=== PATIENT | male | born 1940 | race Caucasian/White ===

== ENCOUNTER 2017-10-09 08:00 | Outpatient (CLI) | payer MEDICARE, OTHER ==
[2017-10-09 12:04] LABS: BASOPHILS % (AUTO) 1.1 %; EOSINOPHILS # (AUTO) 0.1 10^3/uL (0.0-0.7); EOSINOPHILS % (AUTO) 2.3 %; HGB - HEMOGLOBIN 14.3 g/dL (14.0-18.0); LYMPHOCYTES % (AUTO) 23.5 %; MEAN CORPUSCULAR HEMOGLOBIN 32.6 pg (27.0-31.0); MEAN CORPUSCULAR HGB CONC 34.1 g/dL (32.0-36.0); MEAN CORPUSCULAR VOLUME 95.5 fL (80.0-94.0); MEAN PLATELET VOLUME 8.7 fL (7.4-11.4); MONOCYTES # (AUTO) 0.4 10^3/uL (0.0-1.0); MONOCYTES % (AUTO) 9.4 %; NEUTROPHILS # (AUTO) 2.8 10^3/uL (1.5-6.6); NEUTROPHILS % (AUTO) 63.7 %; PLT - PLATELET COUNT 206 10^3/uL (130-450); RED BLOOD COUNT 4.39 10^6/uL (4.70-6.10); RED CELL DISTRIBUTION WIDTH 14.1 % (12.0-15.0); WHITE BLOOD COUNT 4.4 x10^3/uL (4.8-10.8)
[2017-10-09 12:44] LABS: ALBUMIN 4.2 g/dL (3.2-5.5); ALBUMIN/GLOBULIN RATIO 1.8 (1.0-2.2); BILIRUBIN,TOTAL 0.7 mg/dL (0.2-1.0); CALCIUM 9.2 mg/dL (8.5-10.3); CREATININE 0.8 mg/dL (0.6-1.2); TOTAL PROTEIN 6.6 g/dL (6.7-8.2)
[2017-10-09 13:10] LABS: PSA FREE 0.28 ng/mL (0.16-2.81); PSA TOTAL 1.52 ng/mL (0.000-2.000)
== END 2017-10-09 08:01 | disposition home or self-care (01) ==
LOC: LAB.WCP 08:00
PROVIDERS: ATTEND Family Medicine
DX: Z00.00 Encounter for general adult medical examination without abnormal findings (principal); K21.9 Gastro-esophageal reflux disease without esophagitis; E78.5 Hyperlipidemia, unspecified; K57.90 Diverticulosis of intestine, part unspecified, without perforation or abscess without bleeding; R97.20 Elevated prostate specific antigen [PSA]
CPT/HCPCS: 36415; 80053; 84154; 85025

== ENCOUNTER 2019-03-06 11:20 | Day surgery (SDC) | payer MEDICARE, OTHER ==
[2019-03-06] MEDS ORDERED: MIDAZOLAM 2 MG/2 ML VIAL IVP ONE (11:21)
[2019-03-06] MEDS ORDERED: fentaNYL 100 MCG/2 ML VIAL IVP ONE (11:21)
[2019-03-06] MEDS ORDERED: PROPOFOL 200 MG/20 ML VIAL IVP ONE (11:21)
[2019-03-06] MEDS ORDERED: LACTATED RINGERS 1,000 ML IV ONE ×2 (11:31→16:30)
[2019-03-06] MEDS ORDERED: CEFAZOLIN SODIUM IN 0.9 % NACL 2 GM/100 ML BAG IV ONE (12:03)
[2019-03-06] MEDS ORDERED: oxyCODONE 5 MG TABLET PO PRN (12:40)
[2019-03-06] MEDS ORDERED: IBUPROFEN 600 MG TABLET PO PRN (12:40)
[2019-03-06] MEDS ORDERED: ONDANSETRON 4 MG/2 ML VIAL IVP PRN (12:40)
[2019-03-06] MEDS ORDERED: ACETAMINOPHEN 325 MG TABLET PO PRN (12:40)
[2019-03-06] MEDS ORDERED: ceFAZolin 1 GM VIAL ONE (14:37)
[2019-03-06] MEDS ORDERED: BUPIVACAINE 0.5% PF 30 ML VIAL ONE (14:37)
[2019-03-06] MEDS ORDERED: LIDOCAINE 1%-EPI 1:100000 20 ML MDV ONE (14:37)
--- NOTE | 2019-03-06 14:37 | ANESTHESIA ---
Pre-Anesthesia VS, & Labs - Diagnosis L inguinal hernia - Procedure L inguinal hernia repair Vital Signs: Temp Pulse Resp BP Pulse Ox 36.5 C 76 18 157/87 H 98 03/06/19 11:36 03/06/19 11:36 03/06/19 11:36 03/06/19 11:36 03/06/19 11:36 Height 5 ft 7 in Weight (kg) 67.4 kg - NPO >8 hours Home Medications and Allergies Home Medications: Ambulatory Orders Calcium Carbonate [Tums (Calcium Carbonate 500mg)] 2 tab PO QPM 02/24/19 Melatonin 3 mg PO QPM 02/24/19 Psyllium [Metamucil] 1 tsp PO BID 02/24/19 Red Yeast Rice 600 mg PO DAILY 02/24/19 diphenhydrAMINE [Benadryl] 25 mg PO HS 02/24/19 [place]-3/Dha/Epa/Fish Oil [Fish Oil 1,000 mg Softgel] 03/06/19 Active Medications Acetaminophen (Tylenol) 650 mg PO Q6H PRN PRN Reason: Pain or Fever > 38C (100.4F) Ibuprofen (Motrin) 600 mg PO Q6HR PRN PRN Reason: PAIN Ondansetron HCl (Zofran Inj) 4 mg IVP Q6HR PRN PRN Reason: Nausea / Vomiting Oxycodone HCl (Roxicodone) 5 mg PO Q4HR PRN PRN Reason: PAIN Cholecalciferol [Vitamin D3] 5,000 unit PO DAILY 11/02/15 Omeprazole [PriLOSEC] 20 mg PO DAILY 11/02/15 Ubidecarenone [Co Q-10] 1 tab PO DAILY 11/02/15 Vitamin B Complex Vit C No.4 [Super B Complex] 150 mg PO DAILY 11/02/15 Calcium Carbonate [Tums (Calcium Carbonate 500mg)] 2 tab PO QPM 02/24/19 Melatonin 3 mg PO QPM 02/24/19 Psyllium [Metamucil] 1 tsp PO BID 02/24/19 Red Yeast Rice 600 mg PO DAILY 02/24/19 diphenhydrAMINE [Benadryl] 25 mg PO HS 02/24/19 [place]-3/Dha/Epa/Fish Oil [Fish Oil 1,000 mg Softgel] 03/06/19 Allergies/Adverse Reactions: Allergies Allergy/AdvReac Type Severity Reaction Status Date / Time No Known Drug Allergies Allergy Verified 11/02/15 13:50 Anes History & Medical History - Anesthetic History Anesthesia Complications: reports: No previous complications Family history of Anesthesia Complications: Denies Family history of Malignant Hyperthermia: Denies - Medical History Cardiovascular: reports: High cholesterol Pulmonary: reports: None Gastrointestinal: reports: GERD, Hiatal hernia, Colon polyps Urinary: reports: Benign prostate hypertrophy Musculoskeletal: reports: Osteoarthritis Endocrine/Autoimmune: reports: None Skin: reports: None - Surgical History General: Colonoscopy Eyes Ears Nose Throat (EENT): Cataracts, Tonsil/Adenoidectomy Orthopedic: Arthroscopic surgery, Carpal Tunnel surgery, Other Exam General: Alert, Oriented x3, Cooperative Dental: Partials Upper, Partials Lower Mouth Openin Fingerbreadth Neck Mobility: Normal Mallampati classification: II Thyromental Distance: 4-6 cm Respiratory: Lungs clear, Normal breath sounds Cardiovascular: Regular rate Neurological: Normal speech Mental/Cognitive Status: Alert/Oriented X3, Normal for patient Cognitive Status: Within normal limits Plan Anesthesia Type: MAC Consent for Procedure(s) Verified and Reviewed: Yes Code Status: Attempt Resuscitation ASA classification: 2-Mild systemic disease Is this case an emergency?: No
[2019-03-06] MEDS ORDERED: BUPIVACAINE 0.5% PF 30 ML VIAL INFIL ONE ×2 (15:34)
[2019-03-06] MEDS ORDERED: LIDOCAINE MPF 1%-EPI 1:200000 30 ML VIAL SUBQ ONE ×2 (15:34)
[2019-03-06] MEDS ORDERED: ceFAZolin 1 GM VIAL IR ONE (15:34)
[2019-03-06] MEDS ORDERED: oxyCODONE 5 MG TABLET ONE (16:34)
[2019-03-06 17:05] VITALS: BP 133/68
--- NOTE | 2019-03-06 19:54 | OPERATIVE REPORT ---
DATE OF SERVICE: 03/06/2019 Physician: Trev Layton MD PREOPERATIVE DIAGNOSES 1. Symptomatic left inguinal hernia, indirect. 2. Cord lipoma. POSTOPERATIVE DIAGNOSES 1. Symptomatic left inguinal hernia, indirect. 2. Cord lipoma. PROCEDURE PERFORMED 1. Open repair of left inguinal hernia with polypropylene mesh. 2. Excision of cord lipoma. ANESTHESIA: Local plus monitored anesthesia care by David Mace CRNA. SURGEON: Trev Layton MD ESTIMATED BLOOD LOSS: 2 mL COMPLICATIONS: None. FINDINGS: A [id number] size indirect omentum containing indirect left inguinal hernia was identified. There was an associated 5 cm cord lipoma. There was no evidence of direct or femoral hernia. A Bard mesh, medium weight, precut, expanded polypropylene patch was used for the reconstruction. INDICATIONS: Patient is an 79-year-old gentleman with a recent onset of a painful left groin bulge. Examination revealed a reducible left inguinal hernia. He was advised to undergo repair. TECHNIQUE: After informed consent, the patient was taken to the operating room where he was sedated and monitored. Preoperative preparation included administration of 2 grams cefazolin intravenously within an hour of the incision and application of sequential calf compression boots. His left groin had been clipped in the ASU and was prepared with iodoform solution, following which a left groin block was instituted using a 50:50 combination of 1% lidocaine with epinephrine and 0.5% Marcaine plain; a total of 22 mL of mixture was used. The left groin was re-prepared with ChloraPrep solution and draped in the usual sterile fashion. A transverse incision was made in the skin lines of the left groin beginning above the pubic tubercle and extending 5 cm in length. Hemostasis achieved with electrocautery and 2-0 Vicryl ties. Incision was carried down through subcutaneous tissues until the external oblique aponeurosis was identified and incised along the lines of its fibers in such a manner as to open the external ring and expose the internal ring. The spermatic cord was mobilized and encircled with a Rigoberto drain. The ilioinguinal nerve was identified and divided to avoid entrapment and neuralgia. The cord was dissected, isolating the indirect sac from the surrounding cord structures to the level of the internal ring. It was opened. Adhesions between the omentum and the wall of the hernia sac were lysed, allowing the omentum to be fully reduced into the peritoneal cavity. A finger was then inserted into the peritoneal cavity and search for direct and femoral hernias made and none was identified. The hernia sac was then twisted and doubly highly ligated with 3-0 silk suture ligatures. Excess hernia sac was amputated and discarded. The cord lipoma was similarly dissected free from surrounding cord structures to level of the internal ring, where it was ligated with 2-0 Vicryl, amputated and discarded. After hemostasis was assured, the wound was irrigated with antibiotic solution containing 1 gram cefazolin per liter. A Bard, medium weight, precut, slotted, inguinal hernia patch consisting of expanded polypropylene was soaked in the antibiotic solution and then placed over the inguinal floor and secured in place circumferentially with 3-0 Prolene sutures, securing it to the shelving edge of Poupart's ligament inferiorly and to the internal oblique aponeurosis superolaterally and to the lateral border of the rectus sheath medially. Care was taken to avoid excessive tightening of the patch around the cord at the level of the internal ring. After the patch had been circumferentially implanted and secured, the wound was again irrigated with antibiotic solution, following which wound closure was accomplished in layers, including continuous 2-0 Vicryl to reapproximate the external oblique aponeurosis overlying the cord, followed by 3-0 Vicryl for Rafa's fascia and 4-0 Monocryl subcuticular skin closure, followed by Dermabond. The procedure was then terminated, and the patient was transferred out of the operating room in satisfactory condition. Sponge and needle counts were correct x2. No drains were used. cc: Adrien Luz DO TD: 03/06/2019 16:23 MTDJess
== END 2019-03-06 11:21 | disposition home or self-care (01) ==
LOC: SDS 11:20
PROVIDERS: ATTEND Internal Medicine Gastroenterology
PROC: 0VBG0ZZ Excision of Left Spermatic Cord, Open Approach (ICD-10-PCS; 2019-03-06)
PROC: 0YU60JZ Supplement Left Inguinal Region with Synthetic Substitute, Open Approach (ICD-10-PCS; principal; 2019-03-06 14:00)
DX: K40.90 Unilateral inguinal hernia, without obstruction or gangrene, not specified as recurrent (principal); D17.6 Benign lipomatous neoplasm of spermatic cord; Z87.891 Personal history of nicotine dependence; N40.0 Benign prostatic hyperplasia without lower urinary tract symptoms; K21.9 Gastro-esophageal reflux disease without esophagitis
CPT/HCPCS: 49505; 55520; A9270; C1781; J0690; J7120

== ENCOUNTER 2019-12-28 14:03 | Outpatient (CLI) | payer MEDICARE, OTHER ==
--- NOTE | 2019-12-28 15:45 | XRAY Report ---
PROCEDURE: Shoulder 2 View RT INDICATIONS: SHOULDER PAIN, RIGHT TECHNIQUE: 2 views of the shoulder were acquired. COMPARISON: None. FINDINGS: Bones: No fractures or dislocations. No suspicious bony lesions. Visualized ribs appear intact. M oderate AC joint osteoarthritis. Soft tissues: No suspicious soft tissue calcifications. IMPRESSION: No trauma found, moderate AC joint osteoarthritis. Reviewed by: Sterling Henry MD on 12/28/2019 3:43 PM PST Approved by: Sterling Henry MD on 12/28/2019 3:43 PM [facility] Station ID: [id number]
== END 2019-12-28 14:04 | disposition home or self-care (01) ==
LOC: DI 14:03
PROVIDERS: ATTEND Family Medicine
DX: M19.011 Primary osteoarthritis, right shoulder (principal)

== ENCOUNTER 2020-12-27 12:33 | Outpatient (CLI) | payer MEDICARE, OTHER ==
[2020-12-27 18:19] LABS: BASOPHILS % (AUTO) 0.5 %; EOSINOPHILS # (AUTO) 0.1 10^3/uL (0.0-0.7); EOSINOPHILS % (AUTO) 1.4 %; HCT - HEMATOCRIT 45.5 % (42.0-52.0); HGB - HEMOGLOBIN 14.7 g/dL (14.0-18.0); LYMPHOCYTES # (AUTO) 1.1 10^3/uL (1.5-3.5); MEAN CORPUSCULAR HEMOGLOBIN 31.4 pg (27.0-31.0); MEAN CORPUSCULAR HGB CONC 32.3 g/dL (32.0-36.0); MEAN CORPUSCULAR VOLUME 97.2 fL (80.0-94.0); MEAN PLATELET VOLUME 10.6 fL (7.4-11.4); MONOCYTES # (AUTO) 0.7 10^3/uL (0.0-1.0); MONOCYTES % (AUTO) 8.6 %; NEUTROPHILS # (AUTO) 6.1 10^3/uL (1.5-6.6); NEUTROPHILS % (AUTO) 75.1 %; PLT - PLATELET COUNT 242 10^3/uL (130-450); RED BLOOD COUNT 4.68 10^6/uL (4.70-6.10); RED CELL DISTRIBUTION WIDTH 13.3 % (12.0-15.0); WHITE BLOOD COUNT 8.1 x10^3/uL (4.8-10.8)
[2020-12-27 18:38] LABS: ALBUMIN 4.6 g/dL (3.2-5.5); ALBUMIN/GLOBULIN RATIO 1.8 (1.0-2.2); BILIRUBIN,TOTAL 0.8 mg/dL (0.2-1.0); CALCIUM 9.7 mg/dL (8.5-10.3); CREATININE 0.8 mg/dL (0.6-1.2); TOTAL PROTEIN 7.1 g/dL (6.7-8.2)
== END 2020-12-27 12:34 | disposition home or self-care (01) ==
LOC: LAB.N 12:33
PROVIDERS: ATTEND Family Medicine
DX: Z79.899 Other long term (current) drug therapy (principal)
CPT/HCPCS: 36415; 80053; 85025

== ENCOUNTER 2020-12-27 12:39 | Outpatient (CLI) | payer MEDICARE, OTHER ==
--- NOTE | 2020-12-29 02:21 | XRAY Report ---
PROCEDURE: Foot 3 View BILAT INDICATIONS: METATARSALGIA, BILATERAL FEET TECHNIQUE: 3 views of the foot were acquired. COMPARISON: None FINDINGS: Bones: No fractures or dislocations. No suspicious bony lesions. Bilateral mild to moderate IP deg enerative narrowing. No erosions are identified. Calcaneal spurs are present bilaterally. There is bi lateral subluxation of the DIP joints. Soft tissues: No tibiotalar joint effusion. Achilles tendon appears normal. IMPRESSION: Degenerative changes as above. No visualized acute fracture or dislocation. However, occult injury ca nnot be excluded. Recommend short interval imaging follow-up in 7-10 days as clinically indicated for additional evaluation. Reviewed by: Teagan Garcia MD on 12/29/2020 1:24 AM PDT Approved by: Teagan Garcia MD on 12/29/2020 1:24 AM PDT Station ID: [id number]
== END 2020-12-27 12:40 | disposition home or self-care (01) ==
LOC: DI.N 12:39
PROVIDERS: ATTEND Family Medicine
DX: M19.072 Primary osteoarthritis, left ankle and foot (principal); M19.071 Primary osteoarthritis, right ankle and foot; M77.32 Calcaneal spur, left foot; M77.31 Calcaneal spur, right foot; Z79.899 Other long term (current) drug therapy
CPT/HCPCS: 36415; 80053; 85025

== ENCOUNTER 2021-11-07 09:44 | Outpatient (CLI) | payer MEDICARE, OTHER ==
[2021-11-07 12:51] LABS: BASOPHILS % (AUTO) 0.6 %; EOSINOPHILS # (AUTO) 0.1 10^3/uL (0.0-0.7); EOSINOPHILS % (AUTO) 2.4 %; HCT - HEMATOCRIT 44.3 % (42.0-52.0); LYMPHOCYTES % (AUTO) 21.2 %; MEAN CORPUSCULAR HEMOGLOBIN 31.8 pg (27.0-31.0); MEAN CORPUSCULAR HGB CONC 33.9 g/dL (32.0-36.0); MEAN CORPUSCULAR VOLUME 93.9 fL (80.0-94.0); MEAN PLATELET VOLUME 10.7 fL (7.4-11.4); MONOCYTES # (AUTO) 0.4 10^3/uL (0.0-1.0); MONOCYTES % (AUTO) 8.5 %; NEUTROPHILS # (AUTO) 3.1 10^3/uL (1.5-6.6); NEUTROPHILS % (AUTO) 66.9 %; PLT - PLATELET COUNT 240 10^3/uL (130-450); RED BLOOD COUNT 4.72 10^6/uL (4.70-6.10); RED CELL DISTRIBUTION WIDTH 13.4 % (12.0-15.0); WHITE BLOOD COUNT 4.7 x10^3/uL (4.8-10.8)
[2021-11-07 13:02] LABS: THYROID STIMULATING HORMONE 5.1 uIU/mL (0.34-5.60)
[2021-11-07 13:06] LABS: ALBUMIN 4.5 g/dL (3.2-5.5); ALKALINE PHOSPHATASE 67 IU/L (42-121); ALT ALANINE AMINOTRANSFERASE 18 IU/L (10-60); AST ASPARTATE AMINOTRANSFERASE 21 IU/L (10-42); BILIRUBIN,TOTAL 1.2 mg/dL (0.2-1.0); BUN - BLOOD UREA NITROGEN 11 mg/dL (6-20); CALCIUM 9.7 mg/dL (8.5-10.3); CARBON DIOXIDE - CO2 28 mmol/L (21-32); CHLORIDE 103 mmol/L (101-111); CHOL/HDL RATIO 3.6 (<5.0); CHOLESTEROL 186 mg/dL; CREATININE 0.8 mg/dL (0.6-1.2); GFR - MDRD 93 (>89); GLUCOSE 99 mg/dL (70-100); HDL CHOLESTEROL 52 mg/dL; LDL CHOLESTEROL,CALCULATED 119 mg/dL; LDL/HDL RATIO 2.3 (<3.6); POTASSIUM 3.9 mmol/L (3.5-5.0); SODIUM 140 mmol/L (135-145); TOTAL PROTEIN 6.7 g/dL (6.7-8.2); TRIGLYCERIDES 77 mg/dL; VLDL CHOLESTEROL 15 mg/dL
== END 2021-11-07 09:45 | disposition home or self-care (01) ==
LOC: LAB.N 09:44
PROVIDERS: ATTEND Internal Medicine
DX: E78.5 Hyperlipidemia, unspecified (principal); Z79.899 Other long term (current) drug therapy
CPT/HCPCS: 36415; 80053; 80061; 83721; 84443; 85025

== ENCOUNTER 2022-06-14 08:00 | Outpatient (CLI) | payer MEDICARE, OTHER | END 2022-06-14 23:59 | disposition home or self-care (01) | LOC: LAB.R 08:00 | PROVIDERS: ATTEND Family Medicine | DX: L72.3 Sebaceous cyst (principal) | CPT/HCPCS: 87070; 87077; 87181; 87205 ==

== ENCOUNTER 2022-12-27 09:10 | Day surgery (SDC) | payer MEDICARE ==
[2022-12-27] MEDS ORDERED: LACTATED RINGERS 1,000 ML IV ONE ×2 (09:29→10:55)
--- NOTE | 2022-12-27 09:42 | ANESTHESIA ---
Pre-Anesthesia VS, & Labs - Diagnosis Screening exam - Procedure colonoscopy Vital Signs: Temp Pulse Resp BP Pulse Ox O2 Flow Rate 36.3 C L 58 L 14 149/94 H 95 12/27/22 09:30 12/27/22 09:30 12/27/22 09:30 12/27/22 09:30 12/27/22 09:30 Height: 5 ft 6 in Weight (kg): 64.5 kg Body Mass Index: 22.9 BMI Classification: Normal - NPO >8 hours Home Medications and Allergies Cholecalciferol [Vitamin D3] 5,000 unit PO DAILY 11/02/15 Omeprazole [PriLOSEC] 20 mg PO DAILY 11/02/15 Ubidecarenone [Co Q-10] 1 tab PO DAILY 11/02/15 Vitamin B Complex Vit C No.4 [Super B Complex] 150 mg PO DAILY 11/02/15 Calcium Carbonate [Tums (Calcium Carbonate 500mg)] 2 tab PO QPM 02/24/19 Melatonin 3 mg PO QPM 02/24/19 Psyllium [Metamucil] 1 tsp PO BID 02/24/19 Red Yeast Rice 600 mg PO DAILY 02/24/19 diphenhydrAMINE [Benadryl] 25 mg PO HS 02/24/19 [place]-3/Dha/Epa/Fish Oil [Fish Oil 1,000 mg Softgel] 1 cap PO DAILY 03/06/19 Allergies/Adverse Reactions: Allergies Allergy/AdvReac Type Severity Reaction Status Date / Time No Known Drug Allergies Allergy Verified 11/02/15 13:50 Anes History & Medical History - Anesthetic History Anesthesia Complications: reports: No previous complications - Medical History Cardiovascular: reports: None Pulmonary: reports: None Gastrointestinal: reports: GERD, Hiatal hernia, Colon polyps Urinary: reports: Benign prostate hypertrophy Neuro: reports: None Musculoskeletal: reports: Osteoarthritis Endocrine/Autoimmune: reports: None Skin: reports: None Smoking Status: Never smoker Psychosocial: reports: Alcohol (one drink every night) History of Cancer?: No - Surgical History General: reports: Colonoscopy Eyes Ears Nose Throat (EENT): reports: Cataracts, Tonsil/Adenoidectomy Orthopedic: reports: Arthroscopic surgery, Carpal Tunnel surgery, Other Exam General: Alert, Oriented x3, Cooperative, No acute distress Dental: Partials Upper, Partials Lower Mouth Openin Fingerbreadth Neck Mobility: Normal Mallampati classification: II Thyromental Distance: 4-6 cm Mental/Cognitive Status: Alert/Oriented X3, Normal for patient Plan Anesthesia Type: General, Total IV Consent for Procedure(s) Verified and Reviewed: Yes Code Status: Attempt Resuscitation ASA classification: 2-Mild systemic disease Is this case an emergency?: No
--- NOTE | 2022-12-27 10:02 | HISTORY & PHYSICAL EXAMINATION ---
Chief Complaint - Chief Complaint Chief Complaint: here for colonoscopy History of Present Illness - History Obtained From Records Reviewed: yes History obtained from: pt Exam Limitations: none - History of Present Illness HPI Comment/Other: history colon polyps 7 years ago and 5 years prior to that. hx distant diverticulitis. no recent gi symptoms. History - Past Medical History Cardiovascular: reports: None Respiratory: reports: None Neuro: reports: None Endocrine/Autoimmune: reports: None GI: reports: GERD, Hiatal hernia, Colon polyps : reports: Benign prostate hypertrophy HEENT: reports: Chronic hearing loss Psych: reports: None Musculoskeletal: reports: Osteoarthritis Derm: reports: None MRSA Hx?: No - Past Surgical History General: reports: Colonoscopy Ortho: reports: Arthroscopic surgery, Carpal Tunnel surgery, Other HEENT: reports: Cataracts, Tonsil/Adenoidectomy Meds/Allgy - Home Medications Home Medications: Ambulatory Orders Medication Instructions Recorded Confirmed Cholecalciferol [Vitamin D3] 5,000 unit PO DAILY 11/02/15 12/26/22 Omeprazole [PriLOSEC] 20 mg PO DAILY 11/02/15 12/26/22 Ubidecarenone [Co Q-10] 1 tab PO DAILY 11/02/15 12/26/22 Vitamin B Complex Vit C No.4 150 mg PO DAILY 11/02/15 12/26/22 [Super B Complex] Calcium Carbonate [Tums (Calcium 2 tab PO QPM 02/24/19 12/26/22 Carbonate 500mg)] Melatonin 3 mg PO QPM 02/24/19 12/26/22 Psyllium [Metamucil] 1 tsp PO BID 02/24/19 12/26/22 Red Yeast Rice 600 mg PO DAILY 02/24/19 12/26/22 diphenhydrAMINE [Benadryl] 25 mg PO HS 02/24/19 12/26/22 [place]-3/Dha/Epa/Fish Oil [Fish Oil 1 cap PO DAILY 03/06/19 12/26/22 1,000 mg Softgel] - Allergies Allergies/Adverse Reactions: Allergies Allergy/AdvReac Type Severity Reaction Status Date / Time No Known Drug Allergies Allergy Verified 12/27/22 09:46 Review of Systems - Other Findings Other Findings: 10 pt ros as above otherwise unremarkable Exam - Vital Signs Vital Signs: Vital Signs x48h Temp Pulse Resp BP Pulse Ox 12/27/22 09:30 36.3 C L 58 L 14 149/94 H 95 - Physical Exam General Appearance: positive: No acute distress, Alert Eyes Bilateral: positive: PERRL, EOMI ENT: positive: No signs of dehydration Neck: positive: No JVD, Trachea midline Respiratory: positive: No respiratory distress Cardiovascular: positive: Regular rate & rhythm Abdomen: positive: Non-tender Neurologic/Psychiatric: positive: Oriented x3 Conclusion/Plan - Problem List (1) History of adenomatous polyp of colon Conclusion/Plan: plan colonoscopy. parq held and consent obtained
[2022-12-27 11:11] VITALS: O2SAT 96
[2022-12-27 11:30] VITALS: BP 124/72
--- NOTE | 2022-12-27 13:08 | ANESTHESIA POST OP EVALUATION ---
Anesthesia Post Eval - Post Anesthesia Eval Vitals: Last Vital Signs Temp 36.2 C L 12/27/22 11:15 Pulse 70 12/27/22 11:25 Resp 14 12/27/22 11:25 BP 124/72 12/27/22 11:25 Pulse Ox 96 12/27/22 11:25 O2 Flow Rate CV Function Including HR & BP: Stable Pain Control: Satisfactory Nausea & Vomiting: Negative Mental Status: Baseline Respiratory Status: Airway Patent Hydration Status: Satisfactory Anesthesia Complications: None
== END 2022-12-27 09:11 | disposition home or self-care (01) ==
LOC: SDS 09:10
PROVIDERS: ATTEND Surgery
PROC: 0DBL8ZZ Excision of Transverse Colon, Via Natural or Artificial Opening Endoscopic (ICD-10-PCS; 2022-12-27)
PROC: 0DBP8ZZ Excision of Rectum, Via Natural or Artificial Opening Endoscopic (ICD-10-PCS; 2022-12-27)
PROC: 0DBH8ZZ Excision of Cecum, Via Natural or Artificial Opening Endoscopic (ICD-10-PCS; 2022-12-27)
PROC: 0DBK8ZZ Excision of Ascending Colon, Via Natural or Artificial Opening Endoscopic (ICD-10-PCS; principal; 2022-12-27 10:30)
DX: Z12.11 Encounter for screening for malignant neoplasm of colon (principal); D12.3 Benign neoplasm of transverse colon; D12.2 Benign neoplasm of ascending colon; D12.0 Benign neoplasm of cecum; K62.1 Rectal polyp; K57.30 Diverticulosis of large intestine without perforation or abscess without bleeding
CPT/HCPCS: 45380; 45385; J7120

== ENCOUNTER 2023-01-08 09:07 | Outpatient (CLI) | payer MEDICARE ==
[2023-01-08 12:07] LABS: BASOPHILS # (AUTO) 0.1 10^3/uL (0.0-0.1); BASOPHILS % (AUTO) 1.1 %; EOSINOPHILS # (AUTO) 0.2 10^3/uL (0.0-0.7); EOSINOPHILS % (AUTO) 2.8 %; HCT - HEMATOCRIT 46.2 % (42.0-52.0); HGB - HEMOGLOBIN 15.1 g/dL (14.0-18.0); LYMPHOCYTES # (AUTO) 1.1 10^3/uL (1.5-3.5); LYMPHOCYTES % (AUTO) 20.8 %; MEAN CORPUSCULAR HEMOGLOBIN 31.3 pg (27.0-31.0); MEAN CORPUSCULAR HGB CONC 32.7 g/dL (32.0-36.0); MEAN CORPUSCULAR VOLUME 95.7 fL (80.0-94.0); MEAN PLATELET VOLUME 10.2 fL (7.4-11.4); MONOCYTES # (AUTO) 0.5 10^3/uL (0.0-1.0); MONOCYTES % (AUTO) 8.7 %; NEUTROPHILS # (AUTO) 3.5 10^3/uL (1.5-6.6); NEUTROPHILS % (AUTO) 65.8 %; PLT - PLATELET COUNT 236 10^3/uL (130-450); RED BLOOD COUNT 4.83 10^6/uL (4.70-6.10); RED CELL DISTRIBUTION WIDTH 13.4 % (12.0-15.0); WHITE BLOOD COUNT 5.3 x10^3/uL (4.8-10.8)
[2023-01-08 12:34] LABS: THYROID STIMULATING HORMONE 4.44 uIU/mL (0.34-5.60)
[2023-01-08 12:39] LABS: ALBUMIN 4.6 g/dL (3.2-5.5); ALBUMIN/GLOBULIN RATIO 2.3 (1.0-2.2); ALKALINE PHOSPHATASE 61 IU/L (42-121); ALT ALANINE AMINOTRANSFERASE 11 IU/L (10-60); AST ASPARTATE AMINOTRANSFERASE 15 IU/L (10-42); BUN - BLOOD UREA NITROGEN 9 mg/dL (6-20); CALCIUM 9.5 mg/dL (8.5-10.3); CARBON DIOXIDE - CO2 29 mmol/L (21-32); CHLORIDE 101 mmol/L (101-111); CHOLESTEROL 190 mg/dL; CREATININE 0.8 mg/dL (0.6-1.3); GFR - MDRD 92 (>89); GLUCOSE 100 mg/dL (74-104); HDL CHOLESTEROL 47 mg/dL; LDL CHOLESTEROL,CALCULATED 108 mg/dL; LDL/HDL RATIO 2.3 (<3.6); POTASSIUM 3.8 mmol/L (3.5-4.5); SODIUM 138 mmol/L (135-145); TOTAL PROTEIN 6.6 g/dL (6.4-8.9); TRIGLYCERIDES 175 mg/dL (48-352); VLDL CHOLESTEROL 35 mg/dL
[2023-01-08 12:42] LABS: ESTIMATED AVERAGE GLUCOSE 111 mg/dL (70-100); HEMOGLOBIN A1c% 5.5 % (4.27-6.07)
== END 2023-01-08 09:08 | disposition home or self-care (01) ==
LOC: LAB.N 09:07
PROVIDERS: ATTEND Internal Medicine
DX: E78.5 Hyperlipidemia, unspecified (principal); R73.02 Impaired glucose tolerance (oral); R63.4 Abnormal weight loss
CPT/HCPCS: 36415; 80053; 80061; 83036; 83721; 84443; 85025

== ENCOUNTER 2023-03-27 08:00 | Outpatient (CLI) | payer MEDICARE | END 2023-03-27 08:01 | disposition home or self-care (01) | LOC: LAB.N 08:00 | PROVIDERS: ATTEND Family Medicine | DX: U07.1 COVID-19 (principal) ==

== ENCOUNTER 2023-09-21 12:21 | Outpatient (CLI) | payer MEDICARE | END 2023-09-21 23:59 | disposition critical access hospital (66) | LOC: EMS 12:21 | DX: R41.82 Altered mental status, unspecified (principal); R50.9 Fever, unspecified; R53.1 Weakness; R61 Generalized hyperhidrosis | CPT/HCPCS: A0425; A0427 ==

== ENCOUNTER 2023-09-21 12:52 | Emergency (ER) | payer MEDICARE ==
[2023-09-21 13:25] LABS: BASOPHILS % (AUTO) 0.3 %; EOSINOPHILS % (AUTO) 0.1 %; HCT - HEMATOCRIT 43.5 % (42.0-52.0); LYMPHOCYTES # (AUTO) 0.3 10^3/uL (1.5-3.5); LYMPHOCYTES % (AUTO) 3.7 %; MEAN CORPUSCULAR HEMOGLOBIN 30.8 pg (27.0-31.0); MEAN CORPUSCULAR HGB CONC 32.2 g/dL (32.0-36.0); MEAN CORPUSCULAR VOLUME 95.6 fL (80.0-94.0); MEAN PLATELET VOLUME 9.7 fL (7.4-11.4); MONOCYTES # (AUTO) 0.3 10^3/uL (0.0-1.0); NEUTROPHILS # (AUTO) 8.2 10^3/uL (1.5-6.6); NEUTROPHILS % (AUTO) 92.1 %; PLT - PLATELET COUNT 154 10^3/uL (130-450); RED BLOOD COUNT 4.55 10^6/uL (4.70-6.10); RED CELL DISTRIBUTION WIDTH 13.8 % (12.0-15.0); WHITE BLOOD COUNT 8.9 x10^3/uL (4.8-10.8)
[2023-09-21 13:39] LABS: ALBUMIN 4.3 g/dL (3.2-5.5); BILIRUBIN,TOTAL 1.9 mg/dL (0.2-1.0); CALCIUM 8.7 mg/dL (8.5-10.3); CREATININE 0.9 mg/dL (0.6-1.3); MAGNESIUM 1.6 mg/dL (1.7-2.3); POTASSIUM 4.2 mmol/L (3.5-4.5); TOTAL PROTEIN 6.4 g/dL (6.4-8.9)
--- NOTE | 2023-09-21 13:56 | ED Physician Documentation ---
History of Present Illness - Stated complaint Stated Complaint: FEVER,CHILLS - Chief complaint Chief Complaint: General - History obtained from History obtained from: Patient - Additonal information Additional information: Patient is an 83-year-old male presenting to the emergency department with fevers chills symptoms started yesterday afternoon. Patient's notes he was having excessive fatigue but he was working out in the garden earlier today and she did not think anything of it however by the evening he was having persistent tremors and shaking. She notes this occasionally will happen when he has viral illnesses. She notes he has had COVID 2 other times already and he had similar presentations. Patient was brought in by EMS today he was started on 2 L nasal cannula but was saturating around 96 to 98% on arrival on room air in no acute respiratory distress. Patient has been having persistent dry cough with his symptoms that started yesterday as well. He denies any abdominal pain no urinary symptoms. He has past medical history of reflux as well as BPH but otherwise is generally healthy. did not check his temp at home but did report subjective fever. Patient reports nausea, but has not had any vomiting at home. PD PAST MEDICAL HISTORY - Past Medical History Cardiovascular: None Respiratory: None Neuro: None Endocrine/Autoimmune: None GI: GERD, Hiatal hernia, Colon polyps : Benign prostate hypertrophy HEENT: Chronic hearing loss Psych: None Musculoskeletal: Osteoarthritis Derm: None - Past Surgical History Past Surgical History: Yes General: Colonoscopy Ortho: Arthroscopic surgery, Carpal Tunnel surgery, Other HEENT: Cataracts, Tonsil/Adenoidectomy - Present Medications Home Medications: Ambulatory Orders Medication Instructions Recorded Confirmed Cholecalciferol [Vitamin D3] 5,000 unit PO DAILY 11/02/15 09/21/23 Omeprazole [PriLOSEC] 20 mg PO DAILY 11/02/15 09/21/23 Ubidecarenone [Co Q-10] 1 tab PO DAILY 11/02/15 09/21/23 Vitamin B Complex Vit C No.4 150 mg PO DAILY 11/02/15 09/21/23 [Super B Complex] Calcium Carbonate [Tums (Calcium 2 tab PO QPM 02/24/19 09/21/23 Carbonate 500mg)] Melatonin 3 mg PO QPM 02/24/19 09/21/23 Psyllium [Metamucil] 1 tsp PO BID 02/24/19 09/21/23 Red Yeast Rice 600 mg PO DAILY 02/24/19 09/21/23 diphenhydrAMINE [Benadryl] 25 mg PO HS 02/24/19 09/21/23 [place]-3/Dha/Epa/Fish Oil [Fish Oil 1 cap PO DAILY 03/06/19 09/21/23 1,000 mg Softgel] Doxycycline [Vibramycin] 100 mg PO BID 5 Days #10 tablet 09/21/23 Tamsulosin [Flomax] 1 tab PO DAILY 09/21/23 09/21/23 - Allergies Allergies/Adverse Reactions: Allergies Allergy/AdvReac Type Severity Reaction Status Date / Time No Known Drug Allergies Allergy Verified 09/21/23 13:01 - Social History Does the pt smoke?: No Smoking Status: Never smoker PD ED PE NORMAL - Vitals Vital signs reviewed: Yes - General General: Alert and oriented X 3, Other (Patient does appear fatigued on examination history mainly obtained by patient's ) - HEENT HEENT: PERRL, EOMI, Moist mucous membranes (No erythematous posterior pharynx), Other - Neck Neck: No adenopathy, No bruit - Cardiac Cardiac: RRR, No murmur, No gallop, No rub - Respiratory Respiratory: No respiratory distress, Clear bilaterally - Abdomen Abdomen: Normal bowel sounds, Soft, Non tender, Non distended - Male Male : Deferred - Derm Derm: Normal color - Neuro Neuro: Alert and oriented X 3 Results - Vitals Vitals: Vital Signs - 24 hr 09/21/23 09/21/23 09/21/23 12:56 14:49 15:21 Temperature 37.7 C 38.3 C H 38 C H Heart Rate 85 75 Respiratory 16 18 Rate Blood Pressure 164/89 H 125/62 O2 Saturation 94 95 09/21/23 16:00 Temperature Heart Rate 73 Respiratory 16 Rate Blood Pressure 114/67 O2 Saturation 96 Oxygen O2 Source Room air - Labs Labs: Laboratory Tests 09/21/23 09/21/23 09/21/23 13:19 13:19 13:40 WBC 8.9 RBC 4.55 L Hgb 14.0 Hct 43.5 MCV 95.6 H MCH 30.8 MCHC 32.2 RDW 13.8 Plt Count 154 MPV 9.7 Neut # (Auto) 8.2 H Lymph # (Auto) 0.3 L [place] # (Auto) 0.3 Eos # (Auto) 0.0 Baso # (Auto) 0.0 Absolute Nucleated RBC 0.00 Nucleated RBC % 0.0 Sodium 135 Potassium 4.2 Chloride 103 Carbon Dioxide 26 Anion Gap 6.0 BUN 9 Creatinine 0.9 Estimated GFR (MDRD) 80 L Glucose 99 Lactic Acid Calcium 8.7 Magnesium 1.6 L Total Bilirubin 1.9 H AST 19 ALT 18 Alkaline Phosphatase 61 Total Protein 6.4 Albumin 4.3 Globulin 2.1 Albumin/Globulin Ratio 2.0 Lipase 44 Urine Color Urine Clarity Urine pH Ur Specific Hundred Urine Protein Urine Glucose (UA) Urine Ketones Urine Occult Blood Urine Nitrite Urine Bilirubin Urine Urobilinogen Ur Leukocyte Esterase Urine RBC Urine WBC Ur Squamous Epith Cells Urine Bacteria Ur Microscopic Review Urine Culture Comments Nasal Adenovirus (PCR) NOT DETECTED Nasal B. parapertussis DNA (PCR) NOT DETECTED Nasal Coronavir 229E PCR NOT DETECTED Nasal Coronavir HKU1 PCR NOT DETECTED Nasal Coronavir NL63 PCR NOT DETECTED Nasal Coronavir OC43 PCR NOT DETECTED Nasal Enterovir/Rhinovir PCR NOT DETECTED Nasal Influenza B PCR NOT DETECTED Nasal Influenza A PCR NOT DETECTED Nasal Parainfluen 1 PCR NOT DETECTED Nasal Parainfluen 2 PCR NOT DETECTED Nasal Parainfluen 3 PCR NOT DETECTED Nasal Parainfluen 4 PCR NOT DETECTED Nasal RSV (PCR) NOT DETECTED Nasal B.pertussis DNA PCR NOT DETECTED Nasal C.pneumoniae (PCR) NOT DETECTED [place] Human Metapneumo PCR NOT DETECTED Nasal M.pneumoniae (PCR) NOT DETECTED Nasal SARS-CoV-2 (PCR) NOT DETECTED 09/21/23 09/21/23 13:46 14:01 WBC RBC Hgb Hct MCV MCH MCHC RDW Plt Count MPV Neut # (Auto) Lymph # (Auto) [place] # (Auto) Eos # (Auto) Baso # (Auto) Absolute Nucleated RBC Nucleated RBC % Sodium Potassium Chloride Carbon Dioxide Anion Gap BUN Creatinine Estimated GFR (MDRD) Glucose Lactic Acid 1.0 Calcium Magnesium Total Bilirubin AST ALT Alkaline Phosphatase Total Protein Albumin Globulin Albumin/Globulin Ratio Lipase Urine Color YELLOW Urine Clarity CLEAR Urine pH 7.0 Ur Specific Hundred 1.020 Urine Protein 30 H Urine Glucose (UA) NEGATIVE Urine Ketones NEGATIVE Urine Occult Blood NEGATIVE Urine Nitrite NEGATIVE Urine Bilirubin NEGATIVE Urine Urobilinogen 2 H Ur Leukocyte Esterase NEGATIVE Urine RBC None Seen Urine WBC 0-3 Ur Squamous Epith Cells RARE Squamous Urine Bacteria None Seen Ur Microscopic Review INDICATED Urine Culture Comments NOT INDICATED Nasal Adenovirus (PCR) Nasal B. parapertussis DNA (PCR) Nasal Coronavir 229E PCR Nasal Coronavir HKU1 PCR Nasal Coronavir NL63 PCR Nasal Coronavir OC43 PCR Nasal Enterovir/Rhinovir PCR Nasal Influenza B PCR Nasal Influenza A PCR Nasal Parainfluen 1 PCR Nasal Parainfluen 2 PCR Nasal Parainfluen 3 PCR Nasal Parainfluen 4 PCR Nasal RSV (PCR) Nasal B.pertussis DNA PCR Nasal C.pneumoniae (PCR) [place] Human Metapneumo PCR Nasal M.pneumoniae (PCR) Nasal SARS-CoV-2 (PCR) - Rads (name of study) Chest X-ray Relevant Findings:: EMP independent interpretation of test (LEft lower lobe pneumonia) PD Medical Decision Making - ED course Complexity details: reviewed old records, reviewed results, re-evaluated patient, d/w patient, d/w family ED course: Patient is an 83-year-old male generally healthy presenting to the emergency department with generalized fatigue. Patient symptoms started yesterday afternoon. Patient notes he was feeling rigors chills feverish but no temperature taken at home he had cough that started yesterday after working outside for majority of the day. He denies any urinary symptoms. He reports nausea but no episodes of vomiting. Vitals on arrival are reassuring patient is nontachycardic afebrile on arrival normotensive. Physical exam shows clear breath sounds no abdominal tenderness no rebound or guarding. Labs obtained here in the emergency department showed no significant leukocytosis hemoglobin is stable CMP is unremarkable no significant ANGEL or electrolyte abnormalities. Chest x-ray obtained here in the emergency department shows left lower lobe infiltrate concerning for opacity. Given patient's generalized shaking and subjective fevers most likely secondary to pneumonia. Patient was pulse ox ambulate here no desaturations he maintained around 94%. Patient was given fluids and Tylenol and on reevaluation he appears significantly better he feels safe to go home he denies any persistent fatigue he is eating and drinking well here in the emergency department. Patient given dose of doxycycline here in the emergency department will start patient on oral doxycycline at home as he has no comorbidities.Patient instructed to watch for any worsening shortness of breath persistent fatigue to take Tylenol and ibuprofen at home. While here in the emergency department patient did spike a temperature to 100.4 Fahrenheit patient's temperature down trended after Tylenol and fluids were given. Patient discharged home in the care of his . He was agreeable with plan listed above. Departure - Departure Disposition: 01 Home, Self Care Clinical Impression: Left lower lobe pneumonia, Muscle weakness Condition: Fair Instructions: Pneumonia Dc Prescriptions: Doxycycline [Vibramycin] 100 mg PO BID 5 Days #10 tablet Doxycycline [Vibramycin] 100 mg PO BID 5 Days #10 tablet Comments: Return to the emergency department with any persistent fevers, cough shortness of breath dizziness lightheadedness follow-up with your PCP in outpatient setting within the week and complete antibiotics as prescribed.
[2023-09-21 14:09] LABS: BILIRUBIN,URINE NEGATIVE (NEGATIVE); GLUCOSE, URINE (UA) NEGATIVE (NEGATIVE); KETONES,URINE (UA) NEGATIVE (NEGATIVE); LEUKOCYTE ESTERASE, URINE NEGATIVE (NEGATIVE); NITRITE,URINE NEGATIVE (NEGATIVE); OCCULT BLOOD,URINE NEGATIVE (NEGATIVE); PROTEIN,URINE 30 mg/dL (NEGATIVE); UROBILINOGEN,URINE 2 E.U./dL (NORMAL)
[2023-09-21 14:11] LABS: CLARITY,URINE CLEAR (CLEAR)
[2023-09-21 14:19] LABS: BACTERIA,URINE None Seen /HPF (None Seen); RBC,URINE None Seen /HPF (0-5); SQUAMOUS EPITHELIAL CELL,UR RARE Squamous (<= Few); WBC,URINE 0-3 /HPF (0-3)
--- NOTE | 2023-09-21 14:19 | XRAY Report ---
PROCEDURE: Chest 1V INDICATIONS: sob TECHNIQUE: One view of the chest was acquired. COMPARISON: None FINDINGS: Surgical changes and devices: None. Lungs and pleura: Left basilar atelectasis and or infiltrate. Right lung and pleural space clear Mediastinum: Mediastinal contours appear normal. Heart size is enlarged Bones and chest wall: No suspicious bony lesions. Overlying soft tissues appear unremarkable. IMPRESSION: Left basilar atelectasis or infiltrate Cardiomegaly Reviewed by: Sriram Prieto MD on 09/21/2023 1:17 PM [facility] Approved by: Sriram Prieto MD on 09/21/2023 1:17 PM [facility] Station ID: [id number]
[2023-09-21 14:42] LABS: B. PARAPERTUSSIS- RESP PCR PAN NOT DETECTED; B. PERTUSSIS- RESP PCR PANEL NOT DETECTED; C. PNEUMONIAE- RESP PCR PANEL NOT DETECTED; CORONAVIRUS 229E-RESP PCR NOT DETECTED; CORONAVIRUS HKU1-RESP PCR NOT DETECTED; CORONAVIRUS NL63-RESP PCR NOT DETECTED; CORONAVIRUS OC43-RESP PCR NOT DETECTED; HUMAN METAPNEUMOVIRUS NOT DETECTED; INFLUENZA A- RESP PCR PANEL NOT DETECTED; INFLUENZA B - RESP PCR PANEL NOT DETECTED; M. PNEUMONIAE- RESP PCR PANEL NOT DETECTED; PARAINFLUENZA VIRUS 1 NOT DETECTED; PARAINFLUENZA VIRUS 2 NOT DETECTED; PARAINFLUENZA VIRUS 3 NOT DETECTED; PARAINFLUENZA VIRUS 4 NOT DETECTED; RHINOVIRUS/ENTEROVIRUS NOT DETECTED; RSV- RESP PCR PANEL NOT DETECTED; SARS-CoV-2 -RESP PCR PANEL NOT DETECTED
[2023-09-21] MEDS: SODIUM CHLORIDE 0.9% 1,000 ML IV STA (14:51)
[2023-09-21] MEDS: ACETAMINOPHEN 500 MG TABLET PO STA (14:51)
[2023-09-21] MEDS: DOXYCYCLINE INJ 100 MG in SODIUM CHLORIDE 0.9% MINIBAG 100 ML IV STA (16:45)
[2023-09-21 18:01] VITALS: BP 104/56; O2SAT 97
== END 2023-09-21 18:00 | disposition home or self-care (01) ==
LOC: EDUNIT# → ED 12:52
DX: J18.9 Pneumonia, unspecified organism (principal); M62.81 Muscle weakness (generalized); Z79.899 Other long term (current) drug therapy
CPT/HCPCS: 36415; 71045; 80053; 81001; 83605; 83690; 83735; 85025; 87633; 96365; 99284; A9270; 81003; 87086

== ENCOUNTER 2023-10-21 16:31 | Outpatient (CLI) | payer MEDICARE | END 2023-10-21 16:32 | disposition critical access hospital (66) | LOC: EMS 16:31 | DX: R05.1 Acute cough (principal); R25.1 Tremor, unspecified; R10.84 Generalized abdominal pain; R09.02 Hypoxemia; R00.0 Tachycardia, unspecified; R06.2 Wheezing; R50.9 Fever, unspecified | CPT/HCPCS: A0425; A0427 ==

== ENCOUNTER 2023-10-21 17:03 | Observation (INO) | payer MEDICARE ==
[2023-10-21 17:23] LABS: BASOPHILS % (AUTO) 0.3 %; EOSINOPHILS % (AUTO) 0.1 %; HCT - HEMATOCRIT 41.2 % (42.0-52.0); HGB - HEMOGLOBIN 13.6 g/dL (14.0-18.0); LYMPHOCYTES # (AUTO) 0.4 10^3/uL (1.5-3.5); LYMPHOCYTES % (AUTO) 5.5 %; MEAN CORPUSCULAR HEMOGLOBIN 30.8 pg (27.0-31.0); MEAN CORPUSCULAR VOLUME 93.2 fL (80.0-94.0); MEAN PLATELET VOLUME 9.6 fL (7.4-11.4); MONOCYTES # (AUTO) 0.3 10^3/uL (0.0-1.0); MONOCYTES % (AUTO) 4.2 %; NEUTROPHILS # (AUTO) 6.3 10^3/uL (1.5-6.6); NEUTROPHILS % (AUTO) 89.5 %; PLT - PLATELET COUNT 172 10^3/uL (130-450); RED BLOOD COUNT 4.42 10^6/uL (4.70-6.10); RED CELL DISTRIBUTION WIDTH 13.2 % (12.0-15.0); WHITE BLOOD COUNT 7.1 x10^3/uL (4.8-10.8)
--- NOTE | 2023-10-21 17:23 | ED Physician Documentation ---
PD HPI DYSPNEA - Stated complaint Stated Complaint: UPPER RESP/FEVER - Chief complaint Chief Complaint: Resp - Additional information Additional information: 83-year-old male with recent hospital visit for pneumonia about a month ago was started on doxycycline said that he followed up by urgent care and had resolution of symptoms about a month ago. He has been having flulike symptoms for the last 48 hours as well as some abdominal pain he is taking Tylenol ibuprofen with little to no relief. He also has been experiencing shortness of breath EMS on arrival found patient on room air to be at 87% normally he is not on supplemental oxygen. Fever yesterday was up to 102 F, he has got a cough and generalized malaise. PD PAST MEDICAL HISTORY - Past Medical History Past Medical History: Yes Cardiovascular: None Respiratory: None Neuro: None Endocrine/Autoimmune: None GI: GERD, Hiatal hernia, Colon polyps : Benign prostate hypertrophy HEENT: Chronic hearing loss Psych: None Musculoskeletal: Osteoarthritis Derm: None - Past Surgical History Past Surgical History: Yes General: Colonoscopy Ortho: Arthroscopic surgery, Carpal Tunnel surgery, Other HEENT: Cataracts, Tonsil/Adenoidectomy - Present Medications Home Medications: Ambulatory Orders Medication Instructions Recorded Confirmed Cholecalciferol [Vitamin D3] 5,000 unit PO DAILY 11/02/15 09/21/23 Omeprazole [PriLOSEC] 20 mg PO DAILY 11/02/15 09/21/23 Ubidecarenone [Co Q-10] 1 tab PO DAILY 11/02/15 09/21/23 Vitamin B Complex Vit C No.4 150 mg PO DAILY 11/02/15 09/21/23 [Super B Complex] Calcium Carbonate [Tums (Calcium 2 tab PO QPM 02/24/19 09/21/23 Carbonate 500mg)] Melatonin 3 mg PO QPM 02/24/19 09/21/23 Psyllium [Metamucil] 1 tsp PO BID 02/24/19 09/21/23 Red Yeast Rice 600 mg PO DAILY 02/24/19 09/21/23 diphenhydrAMINE [Benadryl] 25 mg PO HS 02/24/19 09/21/23 [place]-3/Dha/Epa/Fish Oil [Fish Oil 1 cap PO DAILY 03/06/19 09/21/23 1,000 mg Softgel] Doxycycline [Vibramycin] 100 mg PO BID 5 Days #10 tablet 09/21/23 Tamsulosin [Flomax] 1 tab PO DAILY 09/21/23 09/21/23 - Allergies Allergies/Adverse Reactions: Allergies Allergy/AdvReac Type Severity Reaction Status Date / Time No Known Drug Allergies Allergy Verified 10/21/23 17:16 - Social History Does the pt smoke?: No Smoking Status: Never smoker Does the pt drink ETOH?: No Does the pt have substance abuse?: No - Immunizations Immunizations are current?: Yes - POLST Patient has POLST: No PD ED PE NORMAL - Vitals Vital signs reviewed: Yes - General General: Alert and oriented X 3, No acute distress, Well developed/nourished - HEENT HEENT: Atraumatic, PERRL - Neck Neck: Supple, no meningeal sign - Cardiac Cardiac: No murmur, No gallop, Strong equal pulses, Other (tachy) - Respiratory Respiratory: No respiratory distress, Clear bilaterally - Abdomen Abdomen: Normal bowel sounds, Soft, Non distended, Other (generalized abdominal tenderness) - Back Back: No CVA TTP - Derm Derm: Normal color, Warm and dry, No rash - Extremities Extremities: No edema, No calf tenderness / cord - Neuro Neuro: Alert and oriented X 3, 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, No motor deficit, No sensory deficit, Normal speech Results - Vitals Vitals: Vital Signs - 24 hr 10/21/23 10/21/23 10/21/23 17:13 17:41 17:50 Temperature 37.2 C 38.7 C H Heart Rate 115 H 108 H Respiratory 20 20 Rate Blood Pressure 132/78 H 143/72 H O2 Saturation 94 92 If not protocol : Oxygen Flow, liters/minute 10/21/23 10/21/23 10/21/23 19:00 19:03 19:29 Temperature 40.9 C H 40.5 C H Heart Rate 125 H 124 H Respiratory 36 H 39 H Rate Blood Pressure 165/94 H 164/94 H O2 Saturation 95 95 If not protocol 2 : Oxygen Flow, liters/minute 10/21/23 10/21/23 10/21/23 19:30 20:00 20:19 Temperature 39.6 C H Heart Rate 115 H 108 H Respiratory 24 18 Rate Blood Pressure 138/66 H 117/62 O2 Saturation 95 94 If not protocol : Oxygen Flow, liters/minute 10/21/23 20:30 Temperature 39.4 C H Heart Rate 99 Respiratory 21 Rate Blood Pressure 104/62 O2 Saturation 96 If not protocol : Oxygen Flow, liters/minute Oxygen O2 Source Room air Oxygen Flow Rate 2 - EKG (time done) 1734 EKG releavant findings:: EKG personally interpreted by author of this note. Relevant findings are: Rate: Rate (enter#) (112) Rhythm: Sinus tachycardia - Labs Labs: Laboratory Tests 10/21/23 10/21/23 10/21/23 17:19 17:19 17:40 WBC 7.1 RBC 4.42 L Hgb 13.6 L Hct 41.2 L MCV 93.2 MCH 30.8 MCHC 33.0 RDW 13.2 Plt Count 172 MPV 9.6 Neut # (Auto) 6.3 Lymph # (Auto) 0.4 L [place] # (Auto) 0.3 Eos # (Auto) 0.0 Baso # (Auto) 0.0 Absolute Nucleated RBC 0.00 Nucleated RBC % 0.0 Sodium 133 L Potassium 3.8 Chloride 99 L Carbon Dioxide 24 Anion Gap 10.0 BUN 7 Creatinine 0.6 Estimated GFR (MDRD) 128 Glucose 131 H Lactic Acid Calcium 8.7 Magnesium 1.5 L Total Bilirubin 2.5 H AST 297 H ALT 230 H Alkaline Phosphatase 424 H Total Protein 6.4 Albumin 4.0 Globulin 2.4 Albumin/Globulin Ratio 1.7 Lipase 63 Urine Color Urine Clarity Urine pH Ur Specific [place] Urine Protein Urine Glucose (UA) Urine Ketones Urine Occult Blood Urine Nitrite Urine Bilirubin Urine Urobilinogen Ur Leukocyte Esterase Urine RBC Urine WBC Urine WBC Clumps Ur Squamous Epith Cells Urine Bacteria Ur Microscopic Review Urine Culture Comments Nasal Adenovirus (PCR) NOT DETECTED Nasal B. parapertussis DNA (PCR) NOT DETECTED Nasal Coronavir 229E PCR NOT DETECTED Nasal Coronavir HKU1 PCR NOT DETECTED Nasal Coronavir NL63 PCR NOT DETECTED Nasal Coronavir OC43 PCR NOT DETECTED Nasal Enterovir/Rhinovir PCR NOT DETECTED Nasal Influenza B PCR NOT DETECTED Nasal Influenza A PCR NOT DETECTED Nasal Parainfluen 1 PCR NOT DETECTED Nasal Parainfluen 2 PCR NOT DETECTED Nasal Parainfluen 3 PCR NOT DETECTED Nasal Parainfluen 4 PCR NOT DETECTED Nasal RSV (PCR) NOT DETECTED Nasal B.pertussis DNA PCR NOT DETECTED Nasal C.pneumoniae (PCR) NOT DETECTED Soham Human Metapneumo PCR NOT DETECTED Nasal M.pneumoniae (PCR) NOT DETECTED Nasal SARS-CoV-2 (PCR) NOT DETECTED 10/21/23 10/21/23 18:50 19:20 WBC RBC Hgb Hct MCV MCH MCHC RDW Plt Count MPV Neut # (Auto) Lymph # (Auto) [place] # (Auto) Eos # (Auto) Baso # (Auto) Absolute Nucleated RBC Nucleated RBC % Sodium Potassium Chloride Carbon Dioxide Anion Gap BUN Creatinine Estimated GFR (MDRD) Glucose Lactic Acid 2.3 H Calcium Magnesium Total Bilirubin AST ALT Alkaline Phosphatase Total Protein Albumin Globulin Albumin/Globulin Ratio Lipase Urine Color YELLOW Urine Clarity CLEAR Urine pH 6.0 Ur Specific [place] 1.020 Urine Protein 100 H Urine Glucose (UA) NEGATIVE Urine Ketones NEGATIVE Urine Occult Blood MODERATE H Urine Nitrite NEGATIVE Urine Bilirubin SMALL H Urine Urobilinogen 1 (NORMAL) Ur Leukocyte Esterase NEGATIVE Urine RBC TNTC H Urine WBC 4-5 Urine WBC Clumps PRESENT Ur Squamous Epith Cells RARE Squamous Urine Bacteria None Seen Ur Microscopic Review INDICATED Urine Culture Comments NOT INDICATED Nasal Adenovirus (PCR) Nasal B. parapertussis DNA (PCR) Nasal Coronavir 229E PCR Nasal Coronavir HKU1 PCR Nasal Coronavir NL63 PCR Nasal Coronavir OC43 PCR Nasal Enterovir/Rhinovir PCR Nasal Influenza B PCR Nasal Influenza A PCR Nasal Parainfluen 1 PCR Nasal Parainfluen 2 PCR Nasal Parainfluen 3 PCR Nasal Parainfluen 4 PCR Nasal RSV (PCR) Nasal B.pertussis DNA PCR Nasal C.pneumoniae (PCR) Soham Human Metapneumo PCR Nasal M.pneumoniae (PCR) Nasal SARS-CoV-2 (PCR) - Rads (name of study) Abdomen pelvis with Relevant Findings:: Final report received, Other (Extensive colonic diverticula and proximal sigmoid colon wall thickening no starting inflammation, several air loops of the small bowel but no obstruction, large hiatal hernia mildly distended gallbladder without calcifications) Angio chest with and without Relevant Findings:: Final report received, EMP independent interpretation of test, Other (No pulmonary embolus chronic large hiatal hernia, no pulmonary parenchymal pathology) Abdominal ultrasound limited Relevant Findings:: Final report received, EMP independent interpretation of test, Other (Moderate gallbladder wall thickening no cholelithiasis possible chronic cholecystitis, coarse and echogenic hepatic echotexture) PD Medical Decision Making - ED course ED course: 83-year-old male presents emergency department for flulike symptoms. Upon initial arrival to the emergency department patient's temperature was found to be 36.8 celcius Orally. Patient soon became altered and was very warm to the touch we repeated a rectal temperature and his temperature was found to be 39.4 and even up to 40 degrees at 1 point in time rectally. He was given oral Tylenol but threw it up and so we ended up giving IV Tylenol during his temperature down. At that point time he was quite altered ice was placed for tediously throughout patient's body to help lower his temperature. He did not appear to be having any febrile seizures but did appear to be quite altered but was still responsive. His labs were complete he did not have any leukocytosis oddly enough, his lactic was elevated at 2.3, mild hyponatremia 133 no other significant electrolyte abnormalities. Bilirubin was elevated at 2.5, AST 297, ALT 230, alk phos 124, a month ago patient's liver enzymes are found to be unremarkable and within normal limits. Urinalysis is not indicative of any leukocytes or nitrites making less suspicious that the source of infection is due to UTI and respiratory panel was also found to be unremarkable. Abdomen pelvis with contrast was complete for further evaluation of patient's abdominal pain and sepsis and he was found to have a mildly distended gallbladder without visible calcifications. Because of patient's tachycardia and hypoxia a CT angio was complete for further evaluation to rule out possible PE and patient did not have a pulmonary embolism. abdominal limited ultrasound was also complete for further evaluation after he was found to have a distended gallbladder on CT scan and ultrasound shows moderate gallbladder wall thickening with possible concerns of chronic cholecystitis given patient's sepsis criteria 2 sets of blood cultures were complete and patient was started on Zosyn here in the emergency department. Reach out to telehospitalist to admit patient for further workup and further hospitalization after I spoke with on-call surgeon Dr. Foster about the above findings who has agreed to round On the patient in the morning for further evaluation. Telehospitalist Dr. Laureano has been notified of this I gave report to on-call telehospitalist Dr. Laureano and she has agreed to admit the patient for further hospitalization and workup. Departure - Departure Disposition: 66 [facility] DC/Xfer Clinical Impression: Sepsis, Cholecystitis Forms: PCP List
[2023-10-21] MEDS ORDERED: iohexoL-300 100 ML VIAL ONE (17:34)
[2023-10-21] MEDS: HYDROmorphone 0.5 MG/0.5 ML SYRINGE IVP STA (17:35)
[2023-10-21] MEDS: SODIUM CHLORIDE 0.9% 500 ML IV ONE (17:36)
[2023-10-21 17:38] LABS: ALBUMIN/GLOBULIN RATIO 1.7 (1.0-2.2); BILIRUBIN,TOTAL 2.5 mg/dL (0.2-1.0); CALCIUM 8.7 mg/dL (8.5-10.3); CREATININE 0.6 mg/dL (0.6-1.3); MAGNESIUM 1.5 mg/dL (1.7-2.3); POTASSIUM 3.8 mmol/L (3.5-4.5); TOTAL PROTEIN 6.4 g/dL (6.4-8.9)
[2023-10-21] MEDS: iohexoL-300 100 ML VIAL IVP ONE (18:34)
[2023-10-21 18:36] LABS: CORONAVIRUS 229E-RESP PCR NOT DETECTED; CORONAVIRUS HKU1-RESP PCR NOT DETECTED; CORONAVIRUS NL63-RESP PCR NOT DETECTED; CORONAVIRUS OC43-RESP PCR NOT DETECTED; HUMAN METAPNEUMOVIRUS NOT DETECTED; INFLUENZA A- RESP PCR PANEL NOT DETECTED; INFLUENZA B - RESP PCR PANEL NOT DETECTED; PARAINFLUENZA VIRUS 1 NOT DETECTED; PARAINFLUENZA VIRUS 2 NOT DETECTED; PARAINFLUENZA VIRUS 3 NOT DETECTED; PARAINFLUENZA VIRUS 4 NOT DETECTED; RHINOVIRUS/ENTEROVIRUS NOT DETECTED; SARS-CoV-2 -RESP PCR PANEL NOT DETECTED
[2023-10-21 18:37] LABS: B. PARAPERTUSSIS- RESP PCR PAN NOT DETECTED; B. PERTUSSIS- RESP PCR PANEL NOT DETECTED; C. PNEUMONIAE- RESP PCR PANEL NOT DETECTED; M. PNEUMONIAE- RESP PCR PANEL NOT DETECTED; RSV- RESP PCR PANEL NOT DETECTED
[2023-10-21] MEDS: ACETAMINOPHEN 500 MG TABLET PO STA (18:37)
[2023-10-21] MEDS: MAGNESIUM OXIDE 400 MG TABLET PO STA (18:37)
[2023-10-21] MEDS: SODIUM CHLORIDE 0.9% 1,000 ML IV ONE (19:03)
[2023-10-21] MEDS: PIPERACILLIN/TAZOBACTAM 3.375 GM in SODIUM CHLORIDE 0.9% MINIBAG 100 ML IV STA (19:13)
[2023-10-21] MEDS: IBUPROFEN 800 MG TABLET PO STA (19:27)
[2023-10-21 19:29] LABS: BILIRUBIN,URINE SMALL (NEGATIVE); GLUCOSE, URINE (UA) NEGATIVE (NEGATIVE); KETONES,URINE (UA) NEGATIVE (NEGATIVE); LEUKOCYTE ESTERASE, URINE NEGATIVE (NEGATIVE); NITRITE,URINE NEGATIVE (NEGATIVE); OCCULT BLOOD,URINE MODERATE (NEGATIVE); PROTEIN,URINE 100 mg/dL (NEGATIVE); UROBILINOGEN,URINE 1 (NORMAL) E.U./dL (NORMAL)
--- NOTE | 2023-10-21 19:33 | CT Report ---
PROCEDURE: Angio Chest INDICATIONS: r/o PE, SOA, tachy, hypoxic CONTRAST: Omni 300 100ml TECHNIQUE: After the administration of intravenous contrast, 2 mm axial images were acquired from the pulmonary apices to the posterior costophrenic angles during the arterial phase. In addition, 1 mm lung kernel and 5 mm soft tissue kernel reconstructions were performed. 3-dimensional coronal oblique maximum int ensity projection (MIP) reformats, 8 mm axial MIP, and 5 mm coronal and sagittal MPR reformats were t hen performed through the thorax. For radiation dose reduction, the following was used: automated exp osure control, adjustment of mA and/or kV according to patient size. COMPARISON: None. FINDINGS: Image quality: Excellent. Large vessels: No filling defects within the opacified pulmonary arteries, accounting for motion and contrast timing. No evidence of acute aortic syndrome or aortic aneurysm. Moderate calcification of the descending thoracic aorta. Lungs and pleura: Small nodules in the anterior right middle lobe, one associated with the minor fiss ure, the other measuring about 3 mm. Calcified nodule associated with the left major fissure near the lung apex. Minor left lower lobe atelectatic changes. No pleural effusions. No pneumothorax. No gabriela picious pulmonary nodules which require follow up. Mediastinum: Heart size is mildly enlarged, anteriorly displaced by a large hiatal hernia. Mild coron jenn artery calcification. No pericardial effusion. No large vessel abnormality. No mediastinal adenop athy by size criteria. The hiatal hernia contains the majority of the nonobstructed stomach and a de compressed loop of bowel, likely transverse colon. There is no fluid in the hernia sac or inflammator y changes in the herniated fat. Chest wall and lower neck: Thyroid is unremarkable. No axillary or supraclavicular adenopathy by size . Bones: No aggressive osseous abnormality. Bridging endplate osteophytosis. Upper Abdomen: Dictated separately IMPRESSION: No pulmonary embolus. Very large, chronic appearing, nonobstructed hiatal hernia. No acute pulmonary parenchymal pathology. Reviewed by: Keyla García MD on 10/21/2023 7:32 PM PDT Approved by: Keyla García MD on 10/21/2023 7:32 PM PDT Station ID: [id number]
--- NOTE | 2023-10-21 19:40 | CT Report ---
PROCEDURE: Abdomen/Pelvis W INDICATIONS: abd pain, fevers CONTRAST: Omni 300 100ml TECHNIQUE: After the administration of intravenous contrast, a CT scan of the abdomen and pelvis was performed. Images were recorded and evaluated at appropriate window settings. Reformats: coronal and sagittal. F or radiation dose reduction, the following was used: automated exposure control, adjustment of mA and /or kV according to patient size. COMPARISON: None. FINDINGS: Image quality: Diagnostic. Degraded by motion artifact. Lower chest: Dictated separately Liver: No solid mass. Gallbladder: Distended gallbladder. No visible calcifications or significant pericholecystic inflamma tion. Biliary tree: No intrahepatic or extrahepatic dilation, accounting for age. Spleen: No splenomegaly. Pancreas: No pancreatic ductal dilation. Adrenals: No adrenal nodule. Kidneys and ureters: Symmetric enhancement. No hydronephrosis or nephrolithiasis. No solid mass or cy st requiring follow-up. Normal ureters. Stomach, bowel and peritoneum: The liver and stomach is partially filled with fluid, herniation of th e chest. The distal stomach is decompressed. Several small bowel loops contain air and possible wall thickening, though not well demonstrated due to motion artifact. The portion of the mid transverse co arun is decompressed and herniated adjacent to the stomach, into the chest. There are diverticula thro ughout the colon. Moderate to extensive diverticulosis in the distal descending and sigmoid colon. Th ere is extensive moderate to long segment wall thickening involving the proximal sigmoid colon. No ac pilar inflammatory changes. No pathologic free fluid. Lymph nodes: No central or retroperitoneal adenopathy. Vessels: Normal caliber abdominal aorta, IVC, and portal vein. Retroaortic left renal vein. PELVIS Reproductive organs: Moderate prostatomegaly. Bladder: No abnormal wall thickening, accounting for underdistention. Pelvic lymph nodes: No pelvic adenopathy by size criteria. Bones: No aggressive osseous abnormality. Other: No significant ventral or inguinal hernia. IMPRESSION: Extensive colonic diverticula and proximal sigmoid colon wall thickening. Although there is no surrou nding inflammation, this may indicate chronic or early diverticulitis. There is air in several loops of small bowel which may demonstrate slight wall thickening but no obst ruction. This could be seen in gastroenteritis. These findings are nonspecific. Large hiatal hernia without gastric or colonic obstruction. Mildly distended gallbladder without visible calcifications or CT evidence of acute cholecystitis. Reviewed by: Keyla García MD on 10/21/2023 7:39 PM PDT Approved by: Keyla García MD on 10/21/2023 7:39 PM PDT Station ID: [id number]
[2023-10-21 19:41] LABS: CLARITY,URINE CLEAR (CLEAR)
[2023-10-21 19:42] LABS: BACTERIA,URINE None Seen /HPF (None Seen); RBC,URINE TNTC /HPF (0-5); SQUAMOUS EPITHELIAL CELL,UR RARE Squamous (<= Few); WBC CLUMPS,URINE PRESENT
[2023-10-21] MEDS: ACETAMINOPHEN 1,000 MG/100 ML 1,000 MG/100 ML BAG IV ONE (19:55)
[2023-10-21] MEDS: ONDANSETRON 4 MG/2 ML VIAL IVP STA (20:17)
[2023-10-21] MEDS: SODIUM CHLORIDE 0.9% 1,000 ML IV STA (21:22)
[2023-10-21] MEDS ORDERED: SODIUM CHLORIDE FLUSH 0.9% 10 ML SYRINGE IVP PRN (21:25)
[2023-10-21] MEDS: oxyCODONE 5 MG TABLET PO STA (21:26)
--- NOTE | 2023-10-21 21:26 | Ultrasound Report ---
PROCEDURE: Abdomen Limited INDICATIONS: distended liver, elevated LFTs, fevers, chills TECHNIQUE: Real-time focused scanning was performed of the abdomen, with image documentation. COMPARISONS: CT abdomen and pelvis from same day. FINDINGS: Liver: Increased and coarsened liver echogenicity, commonly mild hepatic steatosis. Gallbladder: No gallstones. There is gallbladder wall thickening measuring up to 9 mm in thickness. N o pericholecystic fluid. No abnormal sonographic Miranda's sign reported. Biliary ducts: Intrahepatic bile ducts are non-dilated. Extrahepatic bile duct caliber measures 7 m m. Normal is 6-7 mm or less in diameter, or 10 mm or less post-cholecystectomy. Pancreas: Not well visualized due to overlying bowel gas. Right kidney: Normal in size and echotexture. Right kidney measures 10.6 cm long. No hydronephrosis or nephrolithiasis. No solid masses. No complex renal cystic lesions which require follow-up. Miscellaneous: No free abdominal fluid. IMPRESSION: Moderate gallbladder wall thickening without evidence for cholelithiasis or acute cholecystitis. Find ings may represent sequela of chronic cholecystitis. If there is persistent clinical concern for gall bladder pathology, consider nonurgent nuclear medicine HIDA scan for further evaluation. Coarsened, echogenic hepatic echotexture likely related to hepatic steatosis or sequela of chronic he patocellular disease. Reviewed by: Aram Mcneil MD on 10/21/2023 9:25 PM PDT Approved by: Aram Mcneil MD on 10/21/2023 9:25 PM PDT Station ID: [id number]
[2023-10-21] MEDS ORDERED: ONDANSETRON 4 MG/2 ML VIAL IVP PRN (21:33)
[2023-10-21] MEDS ORDERED: MORPHINE 2 MG/ML CARPUJECT IVP PRN (21:33)
[2023-10-21] MEDS ORDERED: ACETAMINOPHEN 1,000 MG/100 ML 1,000 MG/100 ML BAG IV PRN (21:43)
[2023-10-21] MEDS ORDERED: PIPERACILLIN/TAZOBACTAM 3.375 GM in SODIUM CHLORIDE 0.9% MINIBAG 100 ML IV SCH (22:00)
--- NOTE | 2023-10-21 22:18 | HISTORY & PHYSICAL EXAMINATION ---
Chief Complaint - Chief Complaint Chief Complaint: abdominal pain History of Present Illness - Admitted From Admitted From:: ED/home - History of Present Illness HPI Comment/Other: Mr. Flores is a pleasant 83yo, with a history of hyperlipidemia and GERD. He presented to the ED with complaint of progressive abdominal pain, nausea, vomiting and diarrhea for the past 3 days. He had associated fevers. He was recently hospitalized for pneumonia. workup in the ED patient was noted to have elevated liver enzymes. CT abdomen demonstrated finding consistent with gastritis and cholecystitis. Case was discussed with general surgery adn they agreed to see patietn in consultation. Hospitalist was asked to admit for furth er monitoring. This visit was performed using real-time telemedicine tools, including live video. verbal consent to proceed with this visit via telemedicine was obtained from the patient. History - Past Medical History Cardiovascular: reports: None Respiratory: reports: None Neuro: reports: None Endocrine/Autoimmune: reports: None GI: reports: GERD, Hiatal hernia, Colon polyps : reports: Benign prostate hypertrophy HEENT: reports: Chronic hearing loss Psych: reports: None Musculoskeletal: reports: Osteoarthritis Derm: reports: None MRSA Hx?: No - Past Surgical History General: reports: Colonoscopy Ortho: reports: Arthroscopic surgery, Carpal Tunnel surgery, Other HEENT: reports: Cataracts, Tonsil/Adenoidectomy - POLST Patient has POLST: No Meds/Allgy - Home Medications Home Medications: Ambulatory Orders Medication Instructions Recorded Confirmed Cholecalciferol [Vitamin D3] 5,000 unit PO DAILY 11/02/15 09/21/23 Omeprazole [PriLOSEC] 20 mg PO DAILY 11/02/15 09/21/23 Ubidecarenone [Co Q-10] 1 tab PO DAILY 11/02/15 09/21/23 Vitamin B Complex Vit C No.4 150 mg PO DAILY 11/02/15 09/21/23 [Super B Complex] Calcium Carbonate [Tums (Calcium 2 tab PO QPM 02/24/19 09/21/23 Carbonate 500mg)] Melatonin 3 mg PO QPM 02/24/19 09/21/23 Psyllium [Metamucil] 1 tsp PO BID 02/24/19 09/21/23 Red Yeast Rice 600 mg PO DAILY 02/24/19 09/21/23 diphenhydrAMINE [Benadryl] 25 mg PO HS 02/24/19 09/21/23 [place]-3/Dha/Epa/Fish Oil [Fish Oil 1 cap PO DAILY 03/06/19 09/21/23 1,000 mg Softgel] Doxycycline [Vibramycin] 100 mg PO BID 5 Days #10 tablet 09/21/23 Tamsulosin [Flomax] 1 tab PO DAILY 09/21/23 09/21/23 - Allergies Allergies/Adverse Reactions: Allergies Allergy/AdvReac Type Severity Reaction Status Date / Time No Known Drug Allergies Allergy Verified 10/21/23 17:16 Review of Systems - All Other Systems All Other Systems: reports: Reviewed and negative Exam - Vital Signs Reviewed Vital Signs: Yes Vital Signs: Vital Signs x48h Temp Pulse Resp BP Pulse Ox O2 Flow Rate 10/21/23 21:00 98 18 105/90 H 94 10/21/23 20:30 39.4 C H 99 21 104/62 96 10/21/23 20:19 39.6 C H 10/21/23 20:00 108 H 18 117/62 94 10/21/23 19:30 115 H 24 138/66 H 95 10/21/23 19:29 40.5 C H 10/21/23 19:03 40.9 C H 124 H 39 H 164/94 H 95 2 10/21/23 19:00 125 H 36 H 165/94 H 95 10/21/23 17:50 38.7 C H 10/21/23 17:41 108 H 20 143/72 H 92 10/21/23 17:13 37.2 C 115 H 20 132/78 H 94 - Physical Exam General Appearance: positive: No acute distress, Alert Eyes Bilateral: positive: Normal inspection, PERRL Cardiovascular: positive: Regular rate & rhythm, No murmur, No gallop Abdomen: positive: No distention, Tenderness Skin: positive: Color nml, No rash, Warm, Diaphoresis Extremities: positive: Non-tender, Full ROM, Nml appearance Neurologic/Psychiatric: positive: Oriented x3, Mood/affect nml Sepsis Event Note (H) - Evaluation Current Stage of Sepsis: Sepsis Possible source of Sepsis: positive: GI tract/intra-abdominal - Sepsis Criteria Sepsis Criteria: Recorded Temperature greater than 38.3C or Less than 36C, Metabolic: lactate > 2 mmol/L Conclusion/Plan - Problem List (1) Cholecystitis Conclusion/Plan: Imaging CT and ultrasound reviewed independently -Case discussed with general surgeon, Dr. Foster, who has agreed to see patient in consultation -remain nothing by mouth, allowing bowel resit for the next 12 hours -continue with pain mangement -antiemetics -empiric antibiotics with zosyn q8h (2) Sepsis Conclusion/Plan: sepsis criteria met on admission -willcontinue to monitor vitals with continuous telemetry, serial BP and temperature checks -trend inflammatory marker: lacitic acid. -continue empiric antibiotics, blood cultures obtained on presentation to ED, pending will tailor antibiotic regimen base on results -IVF fluids (3) Gastritis Conclusion/Plan: per CT imaging -continue with conservative mangemetn -initaite probiotics once diet advanced -antiemtic -omeprazole resumed (4) Elevated liver enzymes Conclusion/Plan: etiolgoy uncertain, evidence of acute cholecystitis, no gallbladder stones or evidence of biliary obstruction -surgery consulted -avoid hepatotoxic regimen as appropriate - Lab Results Fish Bones: 10/21/23 17:19 10/21/23 17:19 - Diagnostic Imaging Results Diagnostic Imaging Results: positive: See rad report Core Measures - Anticipated LOS I expect patient to be DC'd or transferred within 96 hours.: Yes - DVT/VTE - Prophylaxis VTE/DVT Device ordered at admit?: Yes Telemedicine Consult Details - Provider Location & Consult Time Telemedicine consultation conducted via videoconferencing?: Yes
[2023-10-22] MEDS: LACTATED RINGERS 1,000 ML IV SCH (01:15)
[2023-10-22] MEDS: SODIUM CHLORIDE FLUSH 0.9% 10 ML SYRINGE IVP SCH (01:15)
[2023-10-22] MEDS: PIPERACILLIN/TAZOBACTAM 3.375 GM in SODIUM CHLORIDE 0.9% MINIBAG 100 ML IV SCH (01:15)
[2023-10-22 04:57] LABS: ALBUMIN 3.4 g/dL (3.2-5.5); ALBUMIN/GLOBULIN RATIO 1.8 (1.0-2.2); BILIRUBIN,TOTAL 3.8 mg/dL (0.2-1.0); CALCIUM 8.1 mg/dL (8.5-10.3); CREATININE 0.7 mg/dL (0.6-1.3); POTASSIUM 4.2 mmol/L (3.5-4.5); TOTAL PROTEIN 5.3 g/dL (6.4-8.9)
[2023-10-22] MEDS: MULTIVITAMIN W/MINERALS TABLET PO SCH (11:56)
[2023-10-22] MEDS: CARBOXYMETHYLCELLULOSE OPHTH DROPS EACHEYE PRN (11:59)
--- NOTE | 2023-10-22 12:39 | PHARMACY PROGRESS NOTE ---
- Best Possible Medication History Admit Date and Time: 10/21/232125 Processed by: Pharmacy Medications reviewed in ED?: No Medication History completed: Yes Patient Interview: Completed (BY [employer] WORKER ANGELIC) Secondary Source(s): Physician records, Insurance records As the person ultimately responsible for medication therapy, providers are able to order a medication from an existing home medication list in [facility] via the "Reconcile Routine" prior to Confirmation of that medication by system support specialist. Such practice is discouraged except when the physician, in their clinical judgment, deems that a medical need exists for a medication without regard to previous use.
[2023-10-22 14:25] VITALS: O2SAT 95
[2023-10-22 16:26] VITALS: BP 114/62
--- NOTE | 2023-10-22 17:37 | DISCHARGE SUMMARY ---
"Discharge Summary Admit Date: 10/21/23 Discharge Date: 10/22/23 Discharging Provider: Miladis Velazquez MD Primary Care Provider: Trever Perera MD Code Status: Attempt Resuscitation Discharge Disposition: 02 Transfer Acute Care Hosp - DIAGNOSES Discharge Diagnoses with Status of Each Condition: 1. Sepsis 2. Hiatal hernia torsion 3. Liver compression with elevated liver enzymes 4. Herniated transverse bowel into chest 5. GERD - HPI History of Present Illness: Mr. Flores is a pleasant 83yo, with a history of hyperlipidemia and GERD. He presented to the ED with complaint of progressive abdominal pain, nausea, vomiting and diarrhea for the past 3 days. He had associated fevers. He was recently seen in the ED for pneumonia. He was seen for fever and chills on September 20. He has a previous history of COVID and they were worried that he had another episode of COVID so his family brought him to the emergency room. He had a persistent dry cough. No abdominal pain. No urinary symptoms in spite of a history of BPH. With that visit in the ER his temperature was 38.3. Blood pressure 125/62. White cell count normal. Total bili 1.9 liver enzymes normal. His viral panel was negative. Chest x-ray had left lower lobe pneumonia. No mention of a hiatal hernia. Some mild cardiomegaly. Treatment was with doxycyclline. With this ER visit, patient was noted to have elevated liver enzymes. CT abdomen was interpreted as demonstrating findings consistent with gastritis and cholecystitis. Case was discussed with general surgery and they agreed to see patitient in consultation. Hospitalist was asked to admit for further monit oring. In the emergency room the patient had a fever to 40 degrees. Lactic acid was elevated to 2.3. White cell count was normal. This visit was performed using real-time telemedicine tools, including live video. verbal consent to proceed with this visit via telemedicine was obtained from the patient. - Past Medical History Cardiovascular: reports: None Respiratory: reports: None Neuro: reports: None Endocrine/Autoimmune: reports: None GI: reports: GERD, Hiatal hernia, Colon polyps : reports: Benign prostate hypertrophy HEENT: reports: Chronic hearing loss Psych: reports: None Musculoskeletal: reports: Osteoarthritis Derm: reports: None MRSA Hx?: No - Past Surgical History General: reports: Colonoscopy Ortho: reports: Arthroscopic surgery, Carpal Tunnel surgery, Other HEENT: reports: Cataracts, Tonsil/Adenoidectomy - CONSULTS | PROCEDURES Procedures: 1. Angio of chest shows small nodules in the anterior right middle lobe. No suspicious pulmonary nodules which require follow-up. Heart size is mildly enlarged, anteriorly displaced by a large hiatal hernia. The hiatal hernia contains the majority of the nonobstructive stomach and decompressed loop of bowel, likely transverse colon. No pulmonary emboli. 2. CT of the abdomen and pelvis has a distended gallbladder. The liver and stomach partially filled with fluid, herniation of the stomach in the chest. The distal stomach is decompressed. The mid transverse colon is decompressed and herniated into the esophagus adjacent to the stomach. Moderate to extensive diverticulosis in the distal descending colon and sigmoid bowel without diverticulitis. Extensive to moderate long segment wall thickening involving the proximal sigmoid colon. 3. Abdominal ultrasound with moderate gallbladder wall thickening without evidence for cholelithiasis or acute cholecystitis. Intra and extrahepatic bile ducts not dilated. No gallstones. No Miranda sign. - HOSPITAL COURSE Hospital Course: The patient was treated with Zosyn and IV fluids overnight. Fever resolved. And he remained afebrile for the rest of his stay.Lactic acid normalized to 1.3. Bilirubin started at 2.5 in the ER was 3.8 next day. AST was 297 in the ER and 196 on MedSurg. ALT was 230 and 213 in MedSurg. As the new daytime hospitalist, I reviewed the data from the emergency room this morning. That included reviewing the CAT scan from last night and I went to the radiology suite to discuss the CT report with the radiologist present during the day. Nighttime radiology reading was not helpful in distinguishing what was wrong with this patient. That is why I went down to the radiology suite. The daytime radiologist and I reviewed the CT slices and we feel that the patient has a partially torsed hiatal hernia. The patient's transverse bowel is in the esophagus with the hernia. The hernia is so dilated that it is pushing against the heart, and pushing against the liver. Radiologist was able to pinpoint the ampulla of Vater region. Seeing if there is any possibility that this part of the bowel was obstructed and that was in turn causing liver ductal obstruction. But we were not able to see it. I am possibility that the compression of the hernia to the esophagus transmitting through down to the liver was causing compression of the liver. Much like the hiatal hernia push the heart anteriorly. With IV fluids and antibiotics, the patient was comfortable. No longer had abdominal pain. Longer had a fever. He Had a bowel movement and was passing gas. He was not distended or uncomfortable. He had no appetite. I explained what was going on with his anatomy. Feels like he has had progressively worse reflux symptoms over the years. Is been advised that he do something about this hiatal hernia when he just delay doing anything. He was more worried about his diastases recti than the hernia. His son and were present in the room. And I also expressed the opinion that an urgent referral would be indicated for treatment of what was a possibly early herniating or torsing hiatal hernia. He was amenable to transfer and I contacted [facility], [place], [facility], and [facility]. Jacqueline Kinsey accepted the patient in transfer. The fellow on-call asked that I please place an NG tube on the patient before he was transferred to decompress the stomach. And make sure he was NPO. Patient was transferred in stable condition. Temperature was 37.2. Heart rate 70. Blood pressure 114/62. He had been hypotensive during the day in the 90s over 50s off-and-on. Respirations were 18. 95% on room air. He is a 5 foot 6 inch elderly gentleman who looks his stated age. 66 kg. Lean and lanky. Alert, oriented to person, place, time and situation. Able to participate in caregiving plan. Neck was supple. Lungs have diminished breath sounds at the bases slight crackles at the left lung base. But no respiratory distress. Regular rate and rhythm without tachycardia. And abdomen that had diastases recti in the upper abdomen. Distended and tympanitic but not painful. No peritoneal findings. No right upp er quadrant pain. Hyperactive bowel sounds. He had 1 bowel movement today. NG has now been placed at the request of the [facility] surgeon. He was having flatus throughout the day. Extremities were warm, no clubbing cyanosis or edema. No neurological deficits. He is an exceedingly delightful alert, oriented to person, place, time and situation. No focal neurological deficits. Greater than 30 minutes was spent coordinating discharge. Multiple conversations and presenting this patient to multiple transfer centers. This document was made in part using voice recognition software. While efforts are made to proofread this document, sound alike and grammatical errors may occur. - ALLERGIES Allergies/Adverse Reactions: Allergies Allergy/AdvReac Type Severity Reaction Status Date / Time No Known Drug Allergies Allergy Verified 10/21/23 17:16 - MEDICATIONS Home Medications: Ambulatory Orders Medication Instructions Recorded Confirmed Omeprazole [PriLOSEC] 20 mg PO DAILY 11/02/15 10/22/23 Ubidecarenone [Co Q-10] 1 tab PO DAILY 11/02/15 10/22/23 Vitamin B Complex Vit C No.4 150 mg PO MOWEFRSA 11/02/15 10/22/23 [Super B Complex] Calcium Carbonate [Tums (Calcium 1,000 mg PO QPM 02/24/19 10/22/23 Carbonate 500mg)] Psyllium [Metamucil] 2 tsp PO DAILY 02/24/19 10/22/23 Red Yeast Rice 600 mg PO DAILY 02/24/19 10/22/23 diphenhydrAMINE [Benadryl] 25 mg PO HS 02/24/19 10/22/23 Hallie-3/Dha/Epa/Fish Oil [Fish Oil 1 cap PO DAILY 03/06/19 10/22/23 1,000 mg Softgel] Tamsulosin [Flomax] 0.4 mg PO QPM 09/21/23 10/22/23 Cholecalciferol [Vitamin D3] 25 mcg PO DAILY 10/22/23 10/22/23 Fluticasone [Flonase] 2 sprays SAMAN DAILY 10/22/23 10/22/23 Melatonin 5 mg PO QPM 10/22/23 10/22/23 - LABS Result Diagrams: 10/21/23 17:19 10/22/23 04:32 Other Lab Results: Laboratory Tests 10/21/23 10/21/23 10/21/23 17:19 18:50 22:10 BUN 7 Creatinine 0.6 Lactic Acid 2.3 H 1.1 Total Bilirubin 2.5 H AST 297 H ALT 230 H Alkaline Phosphatase 424 H 10/22/23 10/22/23 04:32 09:38 BUN 7 Creatinine 0.7 Lactic Acid 1.3 Total Bilirubin 3.8 H AST 196 H ALT 213 H Alkaline Phosphatase 369 H - SEPSIS Current Stage of Sepsis: Sepsis Possible source of Sepsis: GI tract/intra-abdominal Sepsis Criteria: Recorded Temperature greater than 38.3C or Less than 36C, Metabolic: lactate > 2 mmol/L"
[2023-10-22] MEDS: LORazepam 2 MG/ML VIAL IVP STA (17:49)
[2023-10-22] MEDS: LIDOCAINE 2% URO-JET 5 ML SYRINGE UR ONE (18:18)
--- NOTE | 2023-10-22 19:24 | XRAY Report ---
PROCEDURE: Chest for Line Placement INDICATIONS: check NG placement TECHNIQUE: One view of the chest was acquired. COMPARISON: 10/21/2023 FINDINGS: Surgical changes and devices: Enteric tube terminates in the left lower chest, presumably within the hiatal hernia seen on CT. Lungs and pleura: No dense consolidation or pleural effusion Mediastinum: Heart size is at the upper normal Bones and chest wall: Degenerative findings IMPRESSION: Enteric tube projects over the left lower chest, presumably within the large hiatal hernia seen on CT . Reviewed by: Zeyad Andrews MD on 10/22/2023 7:23 PM PDT Approved by: Zeyad Andrews MD on 10/22/2023 7:23 PM PDT Station ID: [id number]
== END 2023-10-22 18:40 | disposition short-term general hospital (02) ==
LOC: EDUNIT# → ED 17:03 → MS2 21:26
PROVIDERS: ADMIT Hospitalist; ATTEND Hospitalist
DX: A41.9 Sepsis, unspecified organism (principal); K44.9 Diaphragmatic hernia without obstruction or gangrene; K76.89 Other specified diseases of liver; K21.9 Gastro-esophageal reflux disease without esophagitis; N40.0 Benign prostatic hyperplasia without lower urinary tract symptoms; M19.90 Unspecified osteoarthritis, unspecified site; K81.9 Cholecystitis, unspecified; K29.70 Gastritis, unspecified, without bleeding; R74.01 Elevation of levels of liver transaminase levels; Z20.818 Contact with and (suspected) exposure to other bacterial communicable diseases; Z20.822 Contact with and (suspected) exposure to COVID-19; Z20.828 Contact with and (suspected) exposure to other viral communicable diseases; Z79.899 Other long term (current) drug therapy
CPT/HCPCS: 36415; 51702; 71275; 74177; 76705; 80053; 81001; 83605; 83690; 83735; 85025; 87040; 87154; 87633; 93005; 96361; 96365; 96366; 96367; 96375; 99285; A9270; G0378; J0131; J1170; J2060; J7120; Q9967; 81003; 87086